=== PATIENT | male | born 1945 | race Caucasian/White ===

== ENCOUNTER 2021-06-26 19:43 | Inpatient (IN) | payer OTHER ==
[~2021-06-26] VITALS: Ht 172.7 cm; Wt 134.3 kg
[2021-06-26 19:50] VITALS: BP 175/89
[2021-06-26 20:26] LABS: INFLUENZA A ANTIGEN Negative (Negative); INFLUENZA B ANTIGEN Negative (Negative)
[2021-06-26 21:15] LABS: ABSOLUTE LYMPHOCYTES 0.9 thou/uL (0.8-5.3); ABSOLUTE MONOCYTES 0.5 thou/uL (0.0-1.2); ABSOLUTE NEUTROPHILS 4.5 thou/uL (1.6-8.1); BASOPHILS 0.1 %; HEMATOCRIT 43.6 % (42.0-52.0); HEMOGLOBIN 14.4 gm/dL (14.0-18.0); MCH 31.4 pg (26.0-34.0); MCHC 33.1 g/dL (28.0-37.0); MCV 94.8 fL (80.0-100.0); MONOCYTES 9.1 %; MPV 8.3 fl. (7.2-11.1); NUCLEATED RBCS 0 /100WBC; PLATELET COUNT* 181 thou/uL (150-400); POLYS 75.8 %; RDW-CV 13.6 % (10.5-14.5)
[2021-06-26 21:23] LABS: CALCIUM 8.8 mg/dL (8.5-10.1); CREATININE 2.4 mg/dL (0.6-1.3)
[2021-06-26 21:33] LABS: ALBUMIN 3.2 g/dL (3.4-5.0); TOTAL BILIRUBIN 0.6 mg/dL (<0.1-1.0); TOTAL PROTEIN 7.6 g/dL (6.4-8.2)
[2021-06-26 23:05] LABS: URINE BILIRUBIN NEGATIVE (Negative); URINE BLOOD NEGATIVE (Negative); URINE CLARITY CLEAR; URINE COLOR YELLOW; URINE GLUCOSE-RANDOM 3+ (Negative); URINE KETONES NEGATIVE (Negative); URINE LEUKOCYTES-REFLEX NEGATIVE (Negative); URINE NITRITE-REFLEX NEGATIVE (Negative); URINE PROTEIN 1+ (Negative); URINE SPECIFIC GRAVITY >= 1.030 (1.005-1.030); URINE UROBILINOGEN 0.2 E.U./dl (0.2-1.0)
[2021-06-27 00:26] LABS: BE -3.8 mmol/L (-2 to +3); PCO2 35.2 mmHg (35.0-45.0); PO2 103.9 mmHg (75.0-100.0); pH 7.384 (7.340-7.450)
[2021-06-27 02:00] VITALS: BP 134/70
[2021-06-27 06:23] VITALS: BP 163/78
[2021-06-27 10:30] VITALS: BP 147/90
--- NOTE | 2021-06-27 11:12 | EKG ---
[place] [address] ELECTROCARDIOGRAM REPORT Name: AKINMASONRUTHIE Jarrett Room: [place] [address] ADM IN [facility]#: [id number] Admission: 06/26/21 Attend Phys: Pedro Jolley Discharge: Date of : 49 Date of Service: 06/26/212034 Report #: [id number] THIS REPORT FOR: //name// [facility] ED Test Date: 2021-06-26 Test Time: 20:35:08 Pat Name: RUTHIE STEVENSON Department: Room: [facility] Gender: M [place] Line Attendant: : 1945 Requested By: Shannon Quintana Order Number: [id number] MD: Yobani Finch Measurements Intervals [place] Rate: 89 P: -1 RI: 185 QRS: 96 QRSD: 126 T: 56 QT: 358 QTc: 436 Interpretive Statements Sinus rhythm Right bundle branch block No previous ECG available for comparison Electronically Signed On 06-27-2021 11:11:43 CURTAIN CUTTER by Yobani Finch [email or web address] <ELECTRONICALLY SIGNED> By: Yobani iFnch MD, FACC 06/27/21 1111 34 34 Yobani Finch MD, FAC /EPI
[2021-06-27 15:30] VITALS: BP 156/90
[2021-06-27 18:15] VITALS: BP 153/99
[2021-06-27 19:26] LABS: ABSOLUTE LYMPHOCYTES 0.7 thou/uL (0.8-5.3); ABSOLUTE MONOCYTES 0.6 thou/uL (0.0-1.2); ABSOLUTE NEUTROPHILS 6.5 thou/uL (1.6-8.1); BASOPHILS 0.1 %; HEMATOCRIT 42.7 % (42.0-52.0); HEMOGLOBIN 14.3 gm/dL (14.0-18.0); LYMPHOCYTES 8.6 %; MCH 31.7 pg (26.0-34.0); MCHC 33.5 g/dL (28.0-37.0); MCV 94.5 fL (80.0-100.0); MONOCYTES 8.3 %; MPV 7.8 fl. (7.2-11.1); NUCLEATED RBCS 0 /100WBC; PLATELET COUNT* 192 thou/uL (150-400); RBC 4.51 mil/uL (4.50-6.00); RDW-CV 13.5 % (10.5-14.5); WBC 7.8 thou/uL (4.0-11.0)
[2021-06-27 19:35] LABS: CREATININE 2.1 mg/dL (0.6-1.3)
[2021-06-27 19:46] LABS: POTASSIUM 5.3 mmol/L (3.5-5.1)
[2021-06-27 22:05] VITALS: BP 164/89
[2021-06-28 00:14] LABS: BE -7.4 mmol/L (-2 to +3); PCO2 29.2 mmHg (35.0-45.0); PO2 93.2 mmHg (75.0-100.0); pH 7.366 (7.340-7.450)
[2021-06-28 02:21] VITALS: BP 165/83
[2021-06-28 06:02] VITALS: BP 144/88
[2021-06-28 11:00] VITALS: BP 164/96
[2021-06-28 15:30] VITALS: BP 136/96
[2021-06-28 17:45] VITALS: BP 172/92
[2021-06-28 20:08] VITALS: BP 136/96
[2021-06-29 00:51] VITALS: BP 186/90
[2021-06-29 04:42] VITALS: BP 167/83
[2021-06-29 05:08] LABS: HEMATOCRIT 45.2 % (42.0-52.0); HEMOGLOBIN 14.9 gm/dL (14.0-18.0); MCHC 32.9 g/dL (28.0-37.0); MPV 7.8 fl. (7.2-11.1); RBC 4.81 mil/uL (4.50-6.00); RDW-CV 13.6 % (10.5-14.5); WBC 12.7 thou/uL (4.0-11.0)
[2021-06-29 05:43] LABS: CALCIUM 9.6 mg/dL (8.5-10.1); POTASSIUM 5.2 mmol/L (3.5-5.1)
[2021-06-29 08:25] VITALS: BP 146/92
[2021-06-29 11:18] LABS: PCO2 36.9 mmHg (35.0-45.0); PO2 60.1 mmHg (75.0-100.0); pH 7.332 (7.340-7.450)
[2021-06-29 12:48] VITALS: BP 175/98
[2021-06-29 16:54] VITALS: BP 154/103
[2021-06-29 20:00] VITALS: BP 154/93
--- NOTE | 2021-06-29 23:29 | NUR ---
BIPAP ORDERED FOR PT. PT IS TOO CONFUSED TO WEAR AT THIS TIME. WILL CONT TO MONITOR AND EVALUATE MENTATION.
[2021-06-30] VITALS (11 sets, daily range): BP systolic 106–163; BP diastolic 60–88
--- NOTE | 2021-06-30 04:36 | NUR ---
PT DID NOT TOLERATE BIPAP. RN PLACED BACK ON 15LPM NC.
[2021-06-30 04:46] LABS: HEMATOCRIT 42.5 % (42.0-52.0); HEMOGLOBIN 14.3 gm/dL (14.0-18.0); MCH 31.1 pg (26.0-34.0); MCHC 33.6 g/dL (28.0-37.0); MCV 92.7 fL (80.0-100.0); MPV 7.8 fl. (7.2-11.1); PLATELET COUNT* 289 thou/uL (150-400); RBC 4.58 mil/uL (4.50-6.00); WBC 13.4 thou/uL (4.0-11.0)
[2021-06-30 05:11] LABS: ALBUMIN 3.2 g/dL (3.4-5.0); CALCIUM 9.2 mg/dL (8.5-10.1); MAGNESIUM 2.5 mg/dL (1.8-2.4); POTASSIUM 5.1 mmol/L (3.5-5.1); TOTAL BILIRUBIN 0.6 mg/dL (<0.1-1.0); TOTAL PROTEIN 6.6 g/dL (6.4-8.2)
--- NOTE | 2021-06-30 05:25 | NUR ---
PT CAN BE COMBATIVE AT TIMES, IMPULSIVE AND VERY CONFUSED. GOAL THIS SHIFT WAS TO KEEP OXYGEN ON. HE REMOVED IV, SODIUM BICARBONATE COULD NOT RUN HE WOULD REMOVE THE LINE WHEN ATTEMPTING TO RUN IT. I HAD TO KEEP IT OFF TO KEEP HIM CALM/I THINK IT WAS BURNING HIM. HE WAS UP A FEW TIMES FOUND NAKED WITH HIS OXYGEN REMOVED. I GAVE ATIVAN TWO TIMES AND KEPT HIM IN HIS RECLINER WITH FEET UP TO DISCOURAGE AMBULATION. HE IS ALERT TO SELF AND FALL PRECAUTIONS ARE IN PLACE.
[2021-06-30 06:01] LABS: ANTI-Xa-UNFRACTIONATED HEP 7.335; BE -5.9 mmol/L (-2 to +3); PCO2 36.6 mmHg (35.0-45.0); PO2 85.9 mmHg (75.0-100.0); pH 7.336 (7.340-7.450)
[2021-06-30] MEDS ORDERED: FOLIC ACID1 MG (10:24)
[2021-06-30] MEDS ORDERED: FUROSEMIDE 20 M20 MG (10:25)
[2021-06-30] MEDS ORDERED: TAMSULOSIN HCL0.4 MG (10:26)
[2021-06-30] MEDS ORDERED: GLIPIZIDE ER10 MG PO (10:27)
[2021-06-30] MEDS ORDERED: ACTOS 30 MG TAB30 MG PO (10:29)
[2021-06-30] MEDS ORDERED: LIPITOR40 MG PO (10:29)
[2021-06-30] MEDS ORDERED: METOPROLOL SUCC50 MG PO (10:31)
--- NOTE | 2021-06-30 11:24 | NUR ---
Nutrition: Pt admitted with COVID. Assessed for high BMI. Pt is confused, found walking around with O2 removed, per nsg notes. Wt: 280#. OBE, ARF, PNA. CHO control diet ordered. Meds: B1, D3, albuterol, metoprolol, insulin. Labs: BUN 53, cr 2, BG 200s, albumin 3.2. Encourage good meal intake, tight BG control with insulin. Not appropriate for nutrition educ at this time. Consider mild risk.
[2021-06-30 13:14] LABS: PLATELET ESTIMATE ADEQUATE
[2021-06-30 13:58] LABS: ABSOLUTE LYMPHOCYTES 0.3 thou/uL (0.8-5.3); ABSOLUTE MONOCYTES 0.1 thou/uL (0.0-1.2)
--- NOTE | 2021-06-30 14:41 | NUR ---
CM ASSESSMENT ASSESSMENT COMPLETED WITH PT'S (ALDAIR STEVENSON - [phone]). PT RESIDES WITH AND DAUGHTER IN SINGLE STORY HOME. PT HAS NO HX WITH DME AND IS INDEPENDENT WITH ADLS. PT HAS NO SKILLED, REHAB, OR SERVICE HX. CM TO FOLLOW FOR DC NEEDS.
[2021-07-01] VITALS: BP 165/81
[2021-07-01 01:03] VITALS: BP 187/89
[2021-07-01 02:01] VITALS: BP 164/73
[2021-07-01 05:29] LABS: ABSOLUTE LYMPHOCYTES 0.6 thou/uL (0.8-5.3); ABSOLUTE MONOCYTES 0.8 thou/uL (0.0-1.2); ABSOLUTE NEUTROPHILS 10.5 thou/uL (1.6-8.1); BASOPHILS 0.1 %; HEMOGLOBIN 14.4 gm/dL (14.0-18.0); LYMPHOCYTES 4.8 %; MCH 30.9 pg (26.0-34.0); MCHC 33.4 g/dL (28.0-37.0); MCV 92.5 fL (80.0-100.0); MONOCYTES 6.6 %; NUCLEATED RBCS 0 /100WBC; PLATELET COUNT* 279 thou/uL (150-400); POLYS 88.5 %; RBC 4.65 mil/uL (4.50-6.00); RDW-CV 13.5 % (10.5-14.5); WBC 11.9 thou/uL (4.0-11.0)
[2021-07-01 06:22] LABS: CALCIUM 9.3 mg/dL (8.5-10.1); CREATININE 1.8 mg/dL (0.6-1.3); MAGNESIUM 2.7 mg/dL (1.8-2.4); POTASSIUM 5.2 mmol/L (3.5-5.1); TOTAL BILIRUBIN 0.6 mg/dL (<0.1-1.0); TOTAL PROTEIN 6.4 g/dL (6.4-8.2)
--- NOTE | 2021-07-01 07:19 | NUR ---
PT ADMITTED TO ICU R/T "NEED FOR PRECEDEX GTT." PT STARTED ON PRECEDEX GTT AND REMAINED ON GTT UNTIL APPROX. 0200 R/T BRADYCARDIA. RN SPOKE WITH MD KWAN REGARDING PO MEDS. ORDERED TO "HOLD ALL PO MEDS AT THIS TIME UNTIL HE COMES IN TO EVALUATE THE PATIENT IN THE MORNING." PT IS IMPULSIVE AND PULLS OFF BIPAP MASK WHEN AWAKE. PT INFILTRATED RFA PERIPHERAL IV. IV REMOVED. NO ACUTE CHANGES THIS SHIFT. WILL CONT. TO MONITOR.
[2021-07-01 08:19] LABS: PCO2 40.6 mmHg (35.0-45.0); pH 7.413 (7.340-7.450)
[2021-07-01 08:20] LABS: BE 0.7 mmol/L (-2 to +3); PO2 63.4 mmHg (75.0-100.0)
--- NOTE | 2021-07-01 13:33 | 2DMMODE ---
[place] [address] 2 D/M-MODE ECHOCARDIOGRAM Name: RUTHIE STEVENSON Room: [address] IN [facility]#: [id number] Admission: 06/26/21 Attend Phys: Pedro Jolley Discharge: Date of : 49 Date of Service: 07/01/21 1333 Report #: [id number] THIS REPORT FOR: cc: Faye Fountain MD, Katrina MD Liston, Michael J. MD [facility] ~ APPROVED REPORT Study performed: 07/01/2021 10:15:55 EXAM: Comprehensive 2D, Doppler, and color-flow Echocardiogram Patient Location: In-Patient Room #: 001 Status: routine BSA: 2.36 HR: 70 bpm BP: 136/57 mmHg Rhythm: NSR Other Information Study Quality: Good Indications Dyspnea 2D Dimensions IVSd: 10.29 (7-11mm) LVOT Diam: 20.88 (18-24mm) LVDd: 36.52 mm PWd: 10.38 (7-11mm) Ascending Ao: 30.37 (22-36mm) LVDs: 18.99 (25-40mm) Aortic Root: 33.97 mm Aortic Valve AoV Peak Santiago.: 1.60 m/s AO Peak Gr.: 10.25 mmHg LVOT Max P.69 mmHg AO Mean Gr.: 4.79 mmHg LVOT Mean P.66 mmHg LVOT Max V: 1.29 m/s AO V2 VTI: 30.87 cm LVOT Mean V: 0.73 m/s JAZMINE (VTI): 3.21 cm2 LVOT V1 VTI: 28.95 cm Mitral Valve E/A Ratio: 1.05 MV Decel. Time: 211.34 ms MV E Max Santiago.: 0.71 m/[place] [address] 2 D/M-MODE ECHOCARDIOGRAM Name: RUTHIE STEVENSON Jarrett Room: [address] IN [facility]#: [id number] Admission: 06/26/21 Attend Phys: Pedro Jolley Discharge: Date of : 49 Date of Service: 07/01/21 1333 Report #: [id number] MV PHT: 61.29 ms MVA (PHT): 3.59 cm2 Pulmonary Valve PV Peak Santiago.: 1.16 m/s PV Peak Gr.: 5.39 mmHg Tricuspid Valve RAP Estimate: 5.00 mmHg TR Peak Gr.: 33.85 mmHg RVSP: 38.00 mmHg PA Pressure: 38.00 mmHg Left Ventricle The left ventricle is normal size. There is normal LV segmental wall motion. There is normal left ventricular wall thickness. Left ventricular systolic function is normal. LVEF is >70%. Right Ventricle The right ventricle is normal size. The right ventricular systolic function is normal. Atria The left atrium size is normal. The right atrium size is normal. Aortic Valve The aortic valve is normal in structure. No aortic regurgitation is present. There is no aortic valvular stenosis. Mitral Valve The mitral valve is normal in structure. There is no mitral valve regurgitation noted. No evidence of mitral valve stenosis. Tricuspid Valve The tricuspid valve is normal in structure. Mild tricuspid regurgitation. Mild pulmonary hypertension. The RVSP is 40-45 mmHg. Pulmonic Valve The pulmonary valve is normal in structure. There is no pulmonic valvular regurgitation. Great Vessels The aortic root is normal in size. IVC is normal in size and collapses >50% with inspiration[place] [address] 2 D/M-MODE ECHOCARDIOGRAM Name: RUTHIE STEVENSON Jarrett Room: [address]#: [id number] Admission: 06/26/21 Attend Phys: Pedro Jolley Discharge: Date of : 49 Date of Service: 07/01/21 1333 Report #: [id number] There is no pericardial effusion. <Conclusion> The left ventricle is normal size. There is normal left ventricular wall thickness. Left ventricular systolic function is normal. LVEF is >70%. There is normal LV segmental wall motion. Mild tricuspid regurgitation. Mild pulmonary hypertension. The RVSP is 40-45 mmHg. IVC is normal in size and collapses >50% with inspiration. <ELECTRONICALLY SIGNED> By: Rufino Brush MD, FACC 07/01/21 133 32 32 Rufino Brush MD, FACC /INF
--- NOTE | 2021-07-01 15:46 | NUR ---
Pt has now transferred to the ICU due to increased oxygen needs. He is currently on Bipap & we are hoping to avoid intubation. Pt lives with his and daughter. was recently hospitalized for Covid as well. CM to continue to follow for discharge needs.
[2021-07-01 21:00] VITALS: BP 175/86
[2021-07-01 23:01] VITALS: BP 204/95
[2021-07-02] VITALS (32 sets, daily range): BP systolic 130–217; BP diastolic 59–105
[2021-07-02 08:54] LABS: BE 2.3 mmol/L (-2 to +3); PCO2 37.1 mmHg (35.0-45.0); pH 7.462 (7.340-7.450)
[2021-07-02 09:07] LABS: HEMATOCRIT 45.9 % (42.0-52.0); HEMOGLOBIN 15.2 gm/dL (14.0-18.0); MCHC 33.2 g/dL (28.0-37.0); MCV 93.5 fL (80.0-100.0); MPV 7.8 fl. (7.2-11.1); RBC 4.91 mil/uL (4.50-6.00); RDW-CV 13.5 % (10.5-14.5); WBC 12.7 thou/uL (4.0-11.0)
[2021-07-02 09:27] LABS: ALBUMIN 2.7 g/dL (3.4-5.0); CALCIUM 9.1 mg/dL (8.5-10.1); CREATININE 1.8 mg/dL (0.6-1.3); MAGNESIUM 2.4 mg/dL (1.8-2.4); POTASSIUM 3.4 mmol/L (3.5-5.1); TOTAL BILIRUBIN 0.9 mg/dL (<0.1-1.0); TOTAL PROTEIN 6.6 g/dL (6.4-8.2)
[2021-07-02 11:39] LABS: BE 0.5 mmol/L (-2 to +3); PCO2 44.2 mmHg (35.0-45.0); PO2 77.7 mmHg (75.0-100.0); pH 7.386 (7.340-7.450)
--- NOTE | 2021-07-02 13:30 | CON ---
[facility] [address] [place] [address] CONSULTATION Name: RUTHIE STEVENSON Room: [address] IN .R.#: [id number] Admission: 06/26/21 Attend Phys: Alysia Osorio Discharge: Date of : 49 Report #: [id number] THIS REPORT FOR: cc: Faye Fountain MD, Katrina MD Pervez, Adeel MD ~ DATE OF CONSULTATION: 06/30/2021 CONSULT REQUESTED BY: Dr. Gonzalez. INDICATION FOR CONSULTATION: Acute hypoxemic respiratory failure secondary to COVID-19. HISTORY OF PRESENT ILLNESS: This 75-year-old gentleman has a previous history of smoking. I do not see a diagnosis of COPD on his records, though he does have a history of diabetes and hypertension. I do not have his baseline creatinine available. Currently, the patient is in acute renal failure. He also is hypoxemic. He is requiring a nonrebreather mask in addition to 15 liters via a high-flow green nasal cannula to maintain O2 saturation in the low 90s. He has been confused and agitated and therefore has been requiring sedation including Ativan. The patient recently received Ativan before I saw him and at that time he was agitated, but drowsy at the same time and unable to respond to verbal commands. The patient could not provide a review of systems either. PAST MEDICAL HISTORY: Hypertension, diabetes, hyperlipidemia. SOCIAL HISTORY: He has a history of smoking, unable to quantify at this time. No known history of heavy alcohol use or illegal drug use. VACCINATION STATUS: He is unvaccinated for COVID-19. CURRENT MEDICATIONS: List in [employer] reviewed. HOME MEDICATIONS: List in [employer] reviewed. ALLERGIES: CODEINE. FAMILY HISTORY: Hypertension. PHYSICAL EXAMINATION: GENERAL: He is markedly drowsy, but is also restless at the same time, is unable to respond to verbal commands. VITAL SIGNS: With a nonrebreather mask in place in addition to 15 liters of green high flow, his O2 saturation is 94%, [place] [address] CONSULTATION Name: RUTHIE STEVENSON Room: [address]#: [id number] Admission: 06/26/21 Attend Phys: Alysia Osorio Discharge: Date of : 49 Report #: [id number] between 18-25. Heart rate is 70. He is afebrile with a temperature of 36.1, blood pressure 134/82. HEENT: Head is normocephalic and atraumatic. NECK: Does not show raised JVP, asymmetry, mass or lymph nodes. CHEST: Symmetrical expansion on inspection and palpation. On auscultation, breath sounds are bilaterally equal. I do not hear any added sounds. HEART: Regular. There is no murmur. ABDOMEN: Soft and nontender. EXTREMITIES: Lower extremities, 1+ edema. No calf tenderness. SKIN: Dry and intact. NEUROLOGIC: Moves all extremities bilaterally equally and spontaneously with no focal deficit identified. LABORATORY DATA: The patient's chest x-rays as well as lab work is in [facility] and this is reviewed. Arterial blood gases also in [facility] reviewed. ASSESSMENT/PLAN: 1. Acute hypoxemic respiratory failure secondary to COVID-19. The patient at this time is confused. He is unable to fully cooperate with care; therefore, I would favor trying to avoid giving him benzodiazepines. If he has pain, then we will give him narcotics, but we will try to avoid use of narcotics for agitation. I recommend that we go ahead and transfer him to the ICU and use Precedex for sedation if he is okay to use antipsychotics as well. Continue to monitor oxygen. He may benefit from BiPAP; however, it appears unlikely that he will be able to cooperate at this time. 2. COVID-19. He is on dexamethasone. I increased dose to 10 mg b.i.d. He is on remdesivir. We will also continue, but despite renal failure, benefit appears to outweigh risks. Pharmacy tells me that there is only 1 dose of Actemra available in the hospital. Therefore, I decided not to administer Actemra at this time, but this will be a consideration should he decline. The patient would benefit from Actemra now; however, it is in short supply. There is mild elevation in LFTs. We will watch LFTs closely while he is on remdesivir. 3. Pulmonary infiltrates. Continue doxycycline. Add cefepime to cover for secondary bacterial infections. 4. Acute renal failure. I do not have his baseline creatinine available, therefore presuming this is acute renal failure. He is on a bicarbonate drip. He is receiving the 2nd bag. We will continue with this bag and then we will discontinue and then reassess his fluid and acid base status tomorrow. I ordered an ABG for 8:00 a.m. tomorrow. It is possible he is more hypernatremic tomorrow and if so, may need D5W. If so, then he will also need more insulin. Check a renal ultrasound, he may benefit from placing a Ayala catheter; however, I do not want to worsen his agitation and therefore, I held off for now. I ordered 1 dose of Lasix as well in order to avoid development of worsening fluid [facility] [address] [place] [address] CONSULTATION Name: RUTHIE STEVENSON Room: [address] IN .R.#: [id number] Admission: 06/26/21 Attend Phys: Alysia Osorio Discharge: Date of : 49 Report #: [id number] overload. 5. Edema of lower extremities, also check venous Dopplers and a 2D echo. 6. Deep venous thrombosis prophylaxis. He is on Eliquis. If unable to take orally, then we will give him Lovenox. 7. History of smoking. He is on DuoNeb, also on dexamethasone as above. 8. History of hypertension. 9. History of diabetes. 10. Gastrointestinal prophylaxis, Pepcid. 11. Clostridium difficile prophylaxis. If he is able to, then we will give him Lactinex. The patient is critically ill at this time. Total time spent providing critical care to this patient today exceeds 45 minutes. I discussed with Dr. Gonzalez. <ELECTRONICALLY SIGNED> By: Eduardo Gaffney MD 07/02/21 1330 1359 1923Aderrick Gaffney MD /nt
--- NOTE | 2021-07-02 15:03 | NUR ---
Pt remains in the ICU - but went into respiratory distress today and has now been placed on a vent (Fi02 - 100%). CM to continue to follow for discharge needs.
--- NOTE | 2021-07-02 18:41 | NUR ---
INTUBATION/ END OF SHIFT: UPON INTRODUCTION TO THE PT HE WAS FOUND TO BE SLIGHTLY AGITATED, PULLING AT RODRIGUES AND TRYING TO REMOVE BIPAP. OXYGEN SATURATION WOULD NOT MAINTAIN ABOVE 85% WITH BIPAP AT 100%. RT NOTIFIED WELL DR SUMMERS AND DR ALONZO. PT INTUBATED, SEDATED AND RESTRAINED WITH ASSISTANCE OF ER PHYSICIAN AT 0915. DR SUMMERS PLACED LEFT WRIST ARTERIAL LINE AT 1000, PT OXYGEN, HR AND BP STABILIZED. INFORMATION GIVEN TO FLOW MANAGER NURSE.
--- NOTE | 2021-07-02 19:02 | NUR ---
page was sent to provider electronic development technician at 07/01 to report elevated bp on you call md. message recived at [phone] with no orders followed up
[2021-07-03] VITALS (15 sets, daily range): BP systolic 99–178; BP diastolic 53–78
[2021-07-03 05:03] LABS: ABSOLUTE LYMPHOCYTES 0.3 thou/uL (0.8-5.3); ABSOLUTE MONOCYTES 0.7 thou/uL (0.0-1.2); ABSOLUTE NEUTROPHILS 14.4 thou/uL (1.6-8.1); BASOPHILS 0.3 %; HEMATOCRIT 42.7 % (42.0-52.0); HEMOGLOBIN 14.3 gm/dL (14.0-18.0); LYMPHOCYTES 2.1 %; MCH 31.2 pg (26.0-34.0); MCHC 33.6 g/dL (28.0-37.0); MCV 92.8 fL (80.0-100.0); MONOCYTES 4.6 %; MPV 7.9 fl. (7.2-11.1); NUCLEATED RBCS 0 /100WBC; PLATELET COUNT* 274 thou/uL (150-400); RDW-CV 13.8 % (10.5-14.5); WBC 15.5 thou/uL (4.0-11.0)
[2021-07-03 05:16] LABS: ALBUMIN 2.4 g/dL (3.4-5.0); CALCIUM 8.9 mg/dL (8.5-10.1); CREATININE 1.9 mg/dL (0.6-1.3); MAGNESIUM 2.5 mg/dL (1.8-2.4); POTASSIUM 3.9 mmol/L (3.5-5.1); TOTAL BILIRUBIN 0.5 mg/dL (<0.1-1.0); TOTAL PROTEIN 5.9 g/dL (6.4-8.2)
[2021-07-03 05:25] LABS: PHOSPHORUS* 3.4 mg/dL (2.5-4.9)
[2021-07-03 08:02] LABS: PCO2 49.4 mmHg (35.0-45.0); PO2 69.7 mmHg (75.0-100.0); pH 7.303 (7.340-7.450)
[2021-07-03 18:17] LABS: BE -6.4 mmol/L (-2 to +3); PO2 83.2 mmHg (75.0-100.0)
[2021-07-03 18:29] LABS: PCO2 54.3 mmHg (35.0-45.0); pH 7.222 (7.340-7.450)
[2021-07-04] VITALS (22 sets, daily range): BP systolic 141–177; BP diastolic 46–72
[2021-07-04 05:22] LABS: ABSOLUTE LYMPHOCYTES 0.4 thou/uL (0.8-5.3); ABSOLUTE MONOCYTES 0.7 thou/uL (0.0-1.2); ABSOLUTE NEUTROPHILS 16.9 thou/uL (1.6-8.1); BASOPHILS 0.2 %; HEMATOCRIT 41.5 % (42.0-52.0); HEMOGLOBIN 13.7 gm/dL (14.0-18.0); MCH 30.8 pg (26.0-34.0); MCHC 33.1 g/dL (28.0-37.0); MCV 93.2 fL (80.0-100.0); MONOCYTES 4.1 %; MPV 8.2 fl. (7.2-11.1); NUCLEATED RBCS 0 /100WBC; PLATELET COUNT* 258 thou/uL (150-400); POLYS 93.7 %; RBC 4.45 mil/uL (4.50-6.00)
[2021-07-04 05:58] LABS: APTT 26.4 Seconds (25.0-31.3); INR 1.2; PROTIME 11.9 Seconds (9.20-11.50)
[2021-07-04 06:18] LABS: ALBUMIN 2.2 g/dL (3.4-5.0); CALCIUM 8.6 mg/dL (8.5-10.1); MAGNESIUM 2.6 mg/dL (1.8-2.4); POTASSIUM 3.9 mmol/L (3.5-5.1); TOTAL BILIRUBIN 0.5 mg/dL (<0.1-1.0); TOTAL PROTEIN 5.5 g/dL (6.4-8.2)
[2021-07-04 07:17] LABS: PHOSPHORUS* 4.2 mg/dL (2.5-4.9)
[2021-07-04 07:57] LABS: PCO2 47.6 mmHg (35.0-45.0); PO2 103.9 mmHg (75.0-100.0); pH 7.327 (7.340-7.450)
--- NOTE | 2021-07-04 11:36 | NUR ---
ICU Rounds: Pt continues to be ventilated on Fi02 - 80% and sedated. Pt is currently receiving antibiotics and steroids. Neurology is recommending a non contrast CT when medically stable. Pt lives with his (who was recently hospitalized with Covid) and daughter. Anticipate pt will need SNF vs home with family/HH. CM to continue to follow for discharge planning.
[2021-07-04 19:17] LABS: CALCIUM 8.6 mg/dL (8.5-10.1); MAGNESIUM 2.5 mg/dL (1.8-2.4)
[2021-07-05] VITALS (38 sets, daily range): BP systolic 147–203; BP diastolic 58–76
[2021-07-05 06:07] LABS: ABSOLUTE LYMPHOCYTES 0.5 thou/uL (0.8-5.3); ABSOLUTE MONOCYTES 0.7 thou/uL (0.0-1.2); ABSOLUTE NEUTROPHILS 14.6 thou/uL (1.6-8.1); BASOPHILS 0.1 %; HEMATOCRIT 38.9 % (42.0-52.0); LYMPHOCYTES 3.1 %; MCH 31.3 pg (26.0-34.0); MCHC 33.3 g/dL (28.0-37.0); MCV 93.9 fL (80.0-100.0); MONOCYTES 4.4 %; MPV 8.3 fl. (7.2-11.1); NUCLEATED RBCS 0 /100WBC; PLATELET COUNT* 237 thou/uL (150-400); POLYS 92.4 %; RBC 4.15 mil/uL (4.50-6.00); RDW-CV 13.7 % (10.5-14.5); WBC 15.8 thou/uL (4.0-11.0)
[2021-07-05 06:20] LABS: CALCIUM 8.9 mg/dL (8.5-10.1); PHOSPHORUS* 3.1 mg/dL (2.5-4.9); POTASSIUM 3.9 mmol/L (3.5-5.1)
[2021-07-05 06:21] LABS: ALBUMIN 2.9 g/dL (3.4-5.0); CALCIUM 8.7 mg/dL (8.5-10.1); CREATININE 2.9 mg/dL (0.6-1.3); MAGNESIUM 2.5 mg/dL (1.8-2.4); TOTAL BILIRUBIN 0.6 mg/dL (<0.1-1.0); TOTAL PROTEIN 5.4 g/dL (6.4-8.2)
[2021-07-05 09:46] LABS: BE -2.8 mmol/L (-2 to +3); PCO2 39.8 mmHg (35.0-45.0); PO2 104.7 mmHg (75.0-100.0); pH 7.366 (7.340-7.450)
--- NOTE | 2021-07-05 12:03 | CON ---
[facility] [address] [place] [address] CONSULTATION Name: RUTHIE STEVENSON Room: [address] IN M.R.#: [id number] Admission: 06/26/21 Attend Phys: Alysia Osorio Discharge: Date of : 49 Report #: [id number] THIS REPORT FOR: cc: Faye Fountain MD, Katrina MD Khosla, Parveen K. MD ~ DATE OF CONSULTATION: 07/02/2021 HISTORY OF PRESENT ILLNESS: This is a 75-year-old male patient, who was evaluated by me for encephalopathy. This patient when I saw was completely sedated. So, the history is from the nurses as well as from the records and I will try to talk to the hospitalist tomorrow. This patient is COVID positive. He was admitted with weakness and shortness of breath. According to the record, his weakness progressively became worse. He had some body aches and throbbing. His was also COVID positive. The records indicate that he has not been vaccinated. Nurses tell me when he was agitated, he just wanted to go home. REVIEW OF SYSTEMS: Indicates positive for diabetes, high cholesterol, hypertension. Multiple consultants are involved in this patient's care and those notes were reviewed. He has hypoxic failure, morbid obesity. He is being followed by multiple consultants including pulmonary. He is also having problem with other organs in the body because his GFR is low. A 14-point review of system was attempted and this is all I can get. PAST MEDICAL HISTORY: Unavailable from the patient as he is completely sedated. FAMILY AND SOCIAL HISTORY: Also unremarkable except that his was also COVID positive. PHYSICAL EXAMINATION: His examination was impossible. He had no response because he was completely sedated. No meningeal sign. I could not look at the fundus. VITAL SIGNS: Blood pressure is 130/60, respirations 11, pulse is 64. LABORATORY DATA: Labs indicate a white count of 12.7 and GFR of only 37. IMAGING STUDIES: He did not have any imaging studies of the brain. ASSESSMENT AND PLAN: This patient most likely has encephalopathy. I will talk to hospitalist to see if it is possible to take him down for CT scan to make sure there is no other etiology, that will be done tomorrow; and I think the main management is going to be the systemic management on this patient, but if we can get a CT scan, that will exclude at [place] [address] CONSULTATION Name: RUTHIE STEVENSON Room: [address]#: [id number] Admission: 06/26/21 Attend Phys: Alysia Osorio Discharge: Date of : 49 Report #: [id number] Thank you very much for this referral. <ELECTRONICALLY SIGNED> By: Dhiraj Lees MD 07/05/21 1203 2000 [id number] Lees MD /toby
--- NOTE | 2021-07-05 21:35 | NUR ---
I ASSUMED CARE OF THE PATIENT AT 0700. HE IS SEDATED AND INTUBATED. BED IS IN THE LOW LOCKED POSITION AND CALL LIGHT IS IN REACH. PATIENT NEEDS ARE MET DURING HOURLY ROUNDING. PAIN IS NOT APPARENT. FLUIDS WERE INCREASED BY NEPHRO AT 0740 IN AN EFFORT TO INCREASE OUTPUT. TUBE FEEDS HAVE BEEN HELD D/T POSSIBLE PANCREATITIS. 35ML OUTPUT AFTER 12 HOURS, SO I BLADDER SCANNED TO FIND 385ML. A NEW RODRIGUES WAS PLACED AND 1000ML OF OUTPUT WAS CHARTED IMMEDIATELY. A LARGE CLOT WAS IN THE INITIAL FLASH. DAUGHTER WAS UPDATED ON PATIENT'S CONDITION. NO TITRATIONS OF SEDATION MEDS TODAY. PATIENT WAS PRONED UNTIL AFTERNOON WHEN ENOUGH HELP WAS ABLE TO SUPINE THE PATIENT. PRN BP MEDS WERE GIVEN LATE IN THE SHIFT FOR ELEVATED BP. REPORT GIVEN TO RASHAAD.
[2021-07-06] VITALS (27 sets, daily range): BP systolic 155–192; BP diastolic 58–68
[2021-07-06 04:31] LABS: HEMATOCRIT 40.1 % (42.0-52.0); HEMOGLOBIN 13.1 gm/dL (14.0-18.0); MCH 30.5 pg (26.0-34.0); MCHC 32.6 g/dL (28.0-37.0); MCV 93.8 fL (80.0-100.0); MPV 8.7 fl. (7.2-11.1); NUCLEATED RBCS 0 /100WBC; PLATELET COUNT* 228 thou/uL (150-400); RBC 4.28 mil/uL (4.50-6.00); RDW-CV 13.8 % (10.5-14.5)
[2021-07-06 04:55] LABS: CALCIUM 8.6 mg/dL (8.5-10.1); CREATININE 2.8 mg/dL (0.6-1.3); MAGNESIUM 2.5 mg/dL (1.8-2.4); PHOSPHORUS* 4.6 mg/dL (2.5-4.9); POTASSIUM 4.2 mmol/L (3.5-5.1)
[2021-07-06 06:07] LABS: ABSOLUTE LYMPHOCYTES 0.5 thou/uL (0.8-5.3); ABSOLUTE MONOCYTES 0.7 thou/uL (0.0-1.2); ABSOLUTE NEUTROPHILS 16.7 thou/uL (1.6-8.1)
[2021-07-06 06:08] LABS: PLATELET ESTIMATE ADEQUATE; TOXIC GRANULATION 2+
[2021-07-06 10:12] LABS: PCO2 39.7 mmHg (35.0-45.0); pH 7.331 (7.340-7.450)
--- NOTE | 2021-07-06 19:22 | NUR ---
REPORT RECIEVED AND CARE ASSUMMED. PT WAS PRINED AT THAT TIME, IN NO ACUTE DISTRESS. ETT INTACT AT 24 AT LIP AND CONNECTED TO VENTILATOR WITH FOLLOWING SETTINGS FIO2 60%, AC 22, TV 550, P12. OGT INTACT AT 60CM. RODRIGUES ITNACTA ND PATENT DRAINING YELLOW URINE TO BEDSIDE BAG. TUBE FEEDIGN RESTARTED ORDERED AT 20CC/HR VIA PUMP. PT UNPRONED AND TOLERATED WELL. NO ACUTE CHANGES DURING SHIFT. MONITORS INTACT
[2021-07-07] VITALS (39 sets, daily range): BP systolic 145–172; BP diastolic 59–75
[2021-07-07 05:05] LABS: ABSOLUTE LYMPHOCYTES 0.3 thou/uL (0.8-5.3); ABSOLUTE NEUTROPHILS 19.7 thou/uL (1.6-8.1); BASOPHILS 0.1 %; HEMATOCRIT 41.6 % (42.0-52.0); HEMOGLOBIN 13.7 gm/dL (14.0-18.0); LYMPHOCYTES 1.5 %; MCH 30.7 pg (26.0-34.0); MCHC 32.9 g/dL (28.0-37.0); MCV 93.2 fL (80.0-100.0); MONOCYTES 4.6 %; MPV 8.8 fl. (7.2-11.1); NUCLEATED RBCS 0 /100WBC; PLATELET COUNT* 215 thou/uL (150-400); POLYS 93.8 %; RBC 4.47 mil/uL (4.50-6.00); RDW-CV 13.9 % (10.5-14.5)
[2021-07-07 05:06] LABS: BE -8.6 mmol/L (-2 to +3); PCO2 VENOUS 34.8 mmHg (41.0-51.0); PO2 VENOUS 141.6 mmHg (35.0-45.0)
[2021-07-07 05:40] LABS: APTT 25.9 Seconds (25.0-31.3); INR 1.2; PROTIME 11.8 Seconds (9.20-11.50)
[2021-07-07 05:44] LABS: PHOSPHORUS* 4.7 mg/dL (2.5-4.9)
[2021-07-07 06:18] LABS: ALBUMIN 2.8 g/dL (3.4-5.0); CALCIUM 8.5 mg/dL (8.5-10.1); MAGNESIUM 2.6 mg/dL (1.8-2.4); POTASSIUM 4.6 mmol/L (3.5-5.1); TOTAL BILIRUBIN 0.6 mg/dL (<0.1-1.0); TOTAL PROTEIN 5.3 g/dL (6.4-8.2)
--- NOTE | 2021-07-07 06:30 | NUR ---
PT SEDATED AND ON VENTILATOR. SEE INTERVENTIONS FOR DOCUMENTATION. TOLERATING TUBE FEEDING, ADVANCED TO GOAL STRENGTH OF 45 CC/HR, ONLY 15 CC RESIDULE. BLANE LOWER LEGS WITH 2+ EDEMA. GAS USAGE METER CLERK SHOWING SR WITH 1ST AVB.
[2021-07-07 09:42] LABS: BE -7.9 mmol/L (-2 to +3); PO2 74.2 mmHg (75.0-100.0); pH 7.329 (7.340-7.450)
[2021-07-07 13:38] LABS: BE -8.6 mmol/L (-2 to +3); PCO2 34.5 mmHg (35.0-45.0); PO2 72.2 mmHg (75.0-100.0); pH 7.304 (7.340-7.450)
--- NOTE | 2021-07-07 15:43 | NUR ---
ICU Rounds: Pt continues to be on a vent and sedated and had increased oxygen needs with going from 50% to 90% Fio2 with Peep of 10. ID consulted today for antibiotics. Pt was intubed on 07/02/21. Pt lives with his and daughter. No advanced directive found at this time. Continue to follow for discharge planning.
--- NOTE | 2021-07-07 22:21 | NUR ---
I ASSUMED CARE OF THE PATIENT AT 0700. HE IS SEDATED AND INTUBATED IN SOFT RESTRAINTS. BED IS IN THE LOW LOCKED POSITION. ISOLATION IS MAINTAINED. UPDATE GIVEN TO /DAUGHTER LATE IN THE SHIFT. HE IS PRONED AT 1650. BLOOD GLUCOSE IS MONITORED. HE WENT TO CT FOR A VQ TEST. TUBE FEEDING IS AT GOAL OF 45/ML/HR WITH VERY MINIMAL RESIDUALS, LESS THAN 15. VENT SETTINGS ARE TOLERATED AND SEDATION IS ADEQUATE. SOFT RESTRAINTS ARE IN PLACE AND MONIORED. HE IS REPOSITIONED DURING THE SHIFT. REPORT GIVEN TO TATIANA/JOVANNY.
[2021-07-08] VITALS (23 sets, daily range): BP systolic 145–176; BP diastolic 51–69
[2021-07-08 04:11] LABS: ABSOLUTE BASOPHILS 0.1 thou/uL (0.0-0.2); ABSOLUTE LYMPHOCYTES 0.4 thou/uL (0.8-5.3); ABSOLUTE MONOCYTES 1.1 thou/uL (0.0-1.2); ABSOLUTE NEUTROPHILS 21.3 thou/uL (1.6-8.1); BASOPHILS 0.3 %; HEMATOCRIT 42.4 % (42.0-52.0); HEMOGLOBIN 13.7 gm/dL (14.0-18.0); LYMPHOCYTES 1.6 %; MCH 30.5 pg (26.0-34.0); MCHC 32.2 g/dL (28.0-37.0); MCV 94.7 fL (80.0-100.0); MONOCYTES 4.8 %; NUCLEATED RBCS 0 /100WBC; PLATELET COUNT* 196 thou/uL (150-400); POLYS 93.3 %; RBC 4.47 mil/uL (4.50-6.00); RDW-CV 13.7 % (10.5-14.5); WBC 22.9 thou/uL (4.0-11.0)
[2021-07-08 05:05] LABS: ALBUMIN 2.6 g/dL (3.4-5.0); CALCIUM 8.6 mg/dL (8.5-10.1); CREATININE 3.2 mg/dL (0.6-1.3); MAGNESIUM 2.8 mg/dL (1.8-2.4); PHOSPHORUS* 5.1 mg/dL (2.5-4.9); POTASSIUM 4.8 mmol/L (3.5-5.1); TOTAL BILIRUBIN 0.6 mg/dL (<0.1-1.0); TOTAL PROTEIN 5.3 g/dL (6.4-8.2)
--- NOTE | 2021-07-08 06:58 | NUR ---
PT REMAINS INTUBATED AND SEDATED. PT HAS 3+ PERIOBITAL EDEMA SECONDARY TO PRONING. PT WAS UNPRONED AT 0450. MEDICATIONS ADMINISTERED PRESCRIBED. NO ACUTE CHANGES THIS SHIFT. WILL CONT. TO MONITOR.
[2021-07-08 14:17] LABS: BE -7.7 mmol/L (-2 to +3); PCO2 37.6 mmHg (35.0-45.0); PO2 84.2 mmHg (75.0-100.0)
[2021-07-08 14:21] LABS: pH 7.299 (7.340-7.450)
--- NOTE | 2021-07-08 19:36 | NUR ---
REPORT RECEIVED THIS AM AND CARE ASSUMMED. PT REMAINS SEDATED AND INTUBATED, SEE CHARTING FOR SETTINGS. RODRIGUES INTACT AND PATENT DRAINING YELLOW URINE. NO ACUTE DISTRESS AT THIS TIME. PATIENT HAD A GOOD DAY AND NO ACUTE DISTRESS NOTED. MONITORS INTACT. WILL CONTINUE TO MONITOR
[2021-07-09] VITALS (51 sets, daily range): BP systolic 116–170; BP diastolic 51–61
[2021-07-09 04:49] LABS: HEMATOCRIT 38.7 % (42.0-52.0); HEMOGLOBIN 12.8 gm/dL (14.0-18.0); MCH 30.7 pg (26.0-34.0); MCHC 33.1 g/dL (28.0-37.0); MCV 92.8 fL (80.0-100.0); MPV 9.1 fl. (7.2-11.1); NUCLEATED RBCS 0 /100WBC; PLATELET COUNT* 161 thou/uL (150-400); RBC 4.17 mil/uL (4.50-6.00); RDW-CV 13.3 % (10.5-14.5); WBC 20.4 thou/uL (4.0-11.0)
[2021-07-09 05:07] LABS: ALBUMIN 2.8 g/dL (3.4-5.0); CALCIUM 8.8 mg/dL (8.5-10.1); CREATININE 3.5 mg/dL (0.6-1.3); POTASSIUM 4.4 mmol/L (3.5-5.1); TOTAL BILIRUBIN 0.6 mg/dL (<0.1-1.0); TOTAL PROTEIN 5.3 g/dL (6.4-8.2)
[2021-07-09 05:10] LABS: PHOSPHORUS* 4.7 mg/dL (2.5-4.9)
[2021-07-09 07:10] LABS: ABSOLUTE LYMPHOCYTES 1.2 thou/uL (0.8-5.3); ABSOLUTE NEUTROPHILS 18.2 thou/uL (1.6-8.1)
[2021-07-09 08:28] LABS: BE -3.9 mmol/L (-2 to +3); PO2 82.8 mmHg (75.0-100.0); pH 7.361 (7.340-7.450)
--- NOTE | 2021-07-09 11:02 | CON ---
[address] [address] CONSULTATION Name: RUTHIE STEVENSON Room: [address] IN [facility]#: [id number] Admission: 06/26/21 Attend Phys: Alysia Osorio Discharge: Date of : 49 Report #: [id number] THIS REPORT FOR: cc: Faye Fountain MD, Katrina MD Arakelov, Alexandr V. MD ~ DATE OF CONSULTATION: 07/06/2021 REQUESTING PHYSICIAN: Dr. Pedro Jolley. REASON FOR CONSULTATION: Acute kidney injury. HISTORY OF PRESENT ILLNESS: The patient is a 75-year-old man. He is intubated in intensive care unit. His creatinine on admission was 2.4, but it was as high as 3.0 yesterday and I was consulted. Today's creatinine 2.8. He has good urine output. In fact produced 1600 mL of urine over last 24 hours. His potassium is stable at 4.2. His bicarb is 22. SOCIAL HISTORY: Positive for tobaccoism. MEDICATIONS: Reviewed. FAMILY HISTORY: Positive for hypertension and diabetes in parents. PHYSICAL EXAMINATION: GENERAL: He is in intensive care unit, intubated. VITAL SIGNS: Blood pressure 155/61, heart rate 84, temperature 36.2 Celsius. HEENT: Pupils are round. NECK: Fatty. LUNGS: Decreased air movements. ABDOMEN: Not examined as the patient is in prone position. EXTREMITIES: Lower extremities with 1+ edema. ASSESSMENT: 1. Acute kidney injury due to COVID sepsis. The patient is in respiratory failure, intubated. His creatinine prior to admission, the value of creatinine is not available to me, so I am not sure if he has chronic kidney disease, which he may very well could have due to his history of hypertension and diabetes. The patient is nonoliguric. There is no need for dialysis. 2. Diabetes mellitus type 2. 3. [place] [address] CONSULTATION Name: RUTHIE STEVENSON Room: [address]#: [id number] Admission: 06/26/21 Attend Phys: Alysia Osorio Discharge: Date of : 49 Report #: [id number] PLAN: Continue current care. Follow his urine output, potassium, BUN, creatinine and his pH. Again, no need for dialysis. <ELECTRONICALLY SIGNED> By: Liban Sagastume MD 07/09/21 1102 0948 1012Amark Sagastume MD /nt
[2021-07-10] VITALS (21 sets, daily range): BP systolic 130–197; BP diastolic 53–72
[2021-07-10 04:02] LABS: HEMATOCRIT 40.1 % (42.0-52.0); HEMOGLOBIN 13.2 gm/dL (14.0-18.0); MCH 30.6 pg (26.0-34.0); MCHC 32.8 g/dL (28.0-37.0); MCV 93.4 fL (80.0-100.0); MPV 9.3 fl. (7.2-11.1); RBC 4.3 mil/uL (4.50-6.00); RDW-CV 13.7 % (10.5-14.5)
[2021-07-10 04:18] LABS: MAGNESIUM 3.2 mg/dL (1.8-2.4); PHOSPHORUS* 5.5 mg/dL (2.5-4.9)
[2021-07-10 04:21] LABS: ALBUMIN 2.7 g/dL (3.4-5.0); CALCIUM 8.9 mg/dL (8.5-10.1); CREATININE 3.6 mg/dL (0.6-1.3); TOTAL BILIRUBIN 0.8 mg/dL (<0.1-1.0); TOTAL PROTEIN 5.3 g/dL (6.4-8.2)
[2021-07-10 10:38] LABS: BE -4.3 mmol/L (-2 to +3); PCO2 38.2 mmHg (35.0-45.0); pH 7.353 (7.340-7.450)
--- NOTE | 2021-07-10 14:20 | NUR ---
ICU Rounds: Pt remains vented and sedated at 60%Fio2 10 of peep. Isolation: out of Covid isolation Living Situation: Lives with and daughter Intubated: 07/02/21 Receiving hemodialysis No DPOA paperwork found was recently hospitalized as well. Called house and spoke with . She is doing fine and has recovered. She is anxious for pt to return home. Discussed likely will need SNF vs LTACH but is hoping for returning home with home health. CM to continue to follow for discharge planning.
--- NOTE | 2021-07-10 19:13 | NUR ---
RECIEVED REPORT THSI AM AND CARE ASSUMMED. PT REMAINS INTLUBATED AND ON VENTILATOR. SEE CHARTING FOR SETTING. OGT INTACT AND CLAMPED AT THIS TIME. FOLELY INTACT AND PATENT DRAINING GENO URINE. R [facility] CATH PLACED THIS AFTERNOON. MONITORS INTACT AND NO ACUTE CHANGES DURING SHIFT
[2021-07-11] VITALS (15 sets, daily range): BP systolic 101–152; BP diastolic 46–63
[2021-07-11 05:32] LABS: ABSOLUTE LYMPHOCYTES 0.6 thou/uL (0.8-5.3); ABSOLUTE MONOCYTES 1.8 thou/uL (0.0-1.2); ABSOLUTE NEUTROPHILS 27.7 thou/uL (1.6-8.1); BASOPHILS 0.1 %; HEMATOCRIT 41.6 % (42.0-52.0); HEMOGLOBIN 13.7 gm/dL (14.0-18.0); LYMPHOCYTES 1.9 %; MCH 30.9 pg (26.0-34.0); MCHC 32.8 g/dL (28.0-37.0); MCV 93.9 fL (80.0-100.0); MONOCYTES 6.1 %; MPV 9.4 fl. (7.2-11.1); NUCLEATED RBCS 0 /100WBC; PLATELET COUNT* 134 thou/uL (150-400); POLYS 91.9 %; RBC 4.43 mil/uL (4.50-6.00); RDW-CV 13.7 % (10.5-14.5); WBC 30.2 thou/uL (4.0-11.0)
[2021-07-11 05:59] LABS: APTT 21.9 Seconds (25.0-31.3); INR 1.1; PROTIME 11.6 Seconds (9.20-11.50)
[2021-07-11 06:10] LABS: PHOSPHORUS* 5.3 mg/dL (2.5-4.9)
[2021-07-11 07:02] LABS: ALBUMIN 2.8 g/dL (3.4-5.0); CALCIUM 9.1 mg/dL (8.5-10.1); CREATININE 3.4 mg/dL (0.6-1.3); POTASSIUM 5.8 mmol/L (3.5-5.1); TOTAL BILIRUBIN 0.7 mg/dL (<0.1-1.0); TOTAL PROTEIN 5.4 g/dL (6.4-8.2)
[2021-07-11 07:55] LABS: BE -4.3 mmol/L (-2 to +3); PCO2 37.4 mmHg (35.0-45.0); PO2 77.6 mmHg (75.0-100.0); pH 7.359 (7.340-7.450)
[2021-07-12] VITALS (21 sets, daily range): BP systolic 89–151; BP diastolic 46–71
[2021-07-12 04:37] LABS: ABSOLUTE LYMPHOCYTES 0.3 thou/uL (0.8-5.3); ABSOLUTE NEUTROPHILS 18.9 thou/uL (1.6-8.1); BASOPHILS 0.1 %; HEMATOCRIT 37.2 % (42.0-52.0); HEMOGLOBIN 12.2 gm/dL (14.0-18.0); LYMPHOCYTES 1.5 %; MCH 30.8 pg (26.0-34.0); MCHC 32.8 g/dL (28.0-37.0); MCV 93.8 fL (80.0-100.0); MONOCYTES 4.7 %; MPV 9.3 fl. (7.2-11.1); NUCLEATED RBCS 0 /100WBC; PLATELET COUNT* 84 thou/uL (150-400); POLYS 93.7 %; RBC 3.96 mil/uL (4.50-6.00); RDW-CV 13.8 % (10.5-14.5); WBC 20.2 thou/uL (4.0-11.0)
[2021-07-12 05:27] LABS: ALBUMIN 2.3 g/dL (3.4-5.0); CALCIUM 8.4 mg/dL (8.5-10.1); POTASSIUM 5.8 mmol/L (3.5-5.1); TOTAL BILIRUBIN 0.6 mg/dL (<0.1-1.0); TOTAL PROTEIN 4.6 g/dL (6.4-8.2)
[2021-07-12 05:55] LABS: PHOSPHORUS* 5.4 mg/dL (2.5-4.9)
[2021-07-12 08:19] LABS: BE -2.5 mmol/L (-2 to +3); PCO2 37.4 mmHg (35.0-45.0); PO2 84.2 mmHg (75.0-100.0); pH 7.388 (7.340-7.450)
--- NOTE | 2021-07-12 10:13 | NUR ---
ICU Rounds: Pt remains vented and sedated. Isolation: Out of Covid Isolation Living Situation: Lives with and daughter. DPOA: None Found O2: 70% Fio2 Peep of 10 Intubated: 07/02/21 Pt has started hemodialysis for fluid overload. Weaning trials to continue through the weekend in the hopes of either weaning pt off the vent or to have trache and Peg tube placed next week. If able to wean off - likely will need SNF. If a trache and Peg Tube is placed next week - will need LTACH placement. CM to continue to follow for discharge planning.
[2021-07-13] VITALS (18 sets, daily range): BP systolic 109–151; BP diastolic 52–71
[2021-07-13 04:55] LABS: ABSOLUTE LYMPHOCYTES 0.3 thou/uL (0.8-5.3); ABSOLUTE NEUTROPHILS 18.8 thou/uL (1.6-8.1); BASOPHILS 0.1 %; HEMATOCRIT 34.5 % (42.0-52.0); HEMOGLOBIN 11.5 gm/dL (14.0-18.0); LYMPHOCYTES 1.5 %; MCH 31.3 pg (26.0-34.0); MCHC 33.3 g/dL (28.0-37.0); MCV 93.8 fL (80.0-100.0); MONOCYTES 4.9 %; MPV 9.4 fl. (7.2-11.1); NUCLEATED RBCS 0 /100WBC; PLATELET COUNT* 61 thou/uL (150-400); POLYS 93.5 %; RBC 3.68 mil/uL (4.50-6.00); RDW-CV 13.9 % (10.5-14.5); WBC 20.1 thou/uL (4.0-11.0)
[2021-07-13 04:58] LABS: BE -1.6 mmol/L (-2 to +3); PCO2 35.5 mmHg (35.0-45.0); PO2 95.2 mmHg (75.0-100.0); pH 7.417 (7.340-7.450)
[2021-07-13 05:44] LABS: INR 1.1; PROTIME 11.1 Seconds (9.20-11.50)
[2021-07-13 05:55] LABS: ALBUMIN 2.1 g/dL (3.4-5.0); CALCIUM 7.7 mg/dL (8.5-10.1); CREATININE 2.4 mg/dL (0.6-1.3); POTASSIUM 5.3 mmol/L (3.5-5.1); TOTAL BILIRUBIN 0.7 mg/dL (<0.1-1.0); TOTAL PROTEIN 4.5 g/dL (6.4-8.2)
--- NOTE | 2021-07-13 06:47 | NUR ---
PT REMAINS INTUBATED AND SEDATED. ASSESSMENTS COMPLETE CHARTED. NO ACUTE CHANGES THIS SHIFT. WILL CONT. TO MONITOR.
[2021-07-14] VITALS (22 sets, daily range): BP systolic 80–184; BP diastolic 48–77
[2021-07-14 04:41] LABS: HEMATOCRIT 36.3 % (42.0-52.0); MCHC 33.2 g/dL (28.0-37.0); MCV 93.5 fL (80.0-100.0); MPV 10.1 fl. (7.2-11.1); NUCLEATED RBCS 0 /100WBC; PLATELET COUNT* 62 thou/uL (150-400); RBC 3.88 mil/uL (4.50-6.00); RDW-CV 13.9 % (10.5-14.5); WBC 22.5 thou/uL (4.0-11.0)
[2021-07-14 04:55] LABS: ABSOLUTE NEUTROPHILS 21.1 thou/uL (1.6-8.1); POLYS 93.7 %
[2021-07-14 04:56] LABS: ABSOLUTE LYMPHOCYTES 0.3 thou/uL (0.8-5.3); ABSOLUTE MONOCYTES 1.1 thou/uL (0.0-1.2); LYMPHOCYTES 1.5 %; MONOCYTES 4.8 %
[2021-07-14 05:06] LABS: CALCIUM 8.5 mg/dL (8.5-10.1); CREATININE 2.6 mg/dL (0.6-1.3); POTASSIUM 5.9 mmol/L (3.5-5.1)
--- NOTE | 2021-07-14 13:53 | NUR ---
ICU Rounds: Remains Intubated and Sedated Isolation: Out of Covid Isolation Living Situation: Live with and daughter Intubated: 06/22/21 Hemodialyis started: 07/11/21 Oxygen Needs: 70%Fio2 10 of Peep DPOA: None D/C Plan - LTACH vs SNF CM to continue to follow - may need trache and peg tube placement soon.
[2021-07-14 16:06] LABS: HEPATITIS B SURFACE AG Negative (Negative)
[2021-07-14 17:30] LABS: BE -0.9 mmol/L (-2 to +3); PCO2 VENOUS 38.1 mmHg (41.0-51.0); PO2 VENOUS 61.6 mmHg (35.0-45.0)
--- NOTE | 2021-07-14 18:01 | NUR ---
REPORT RECIEVED THIS AM AND CARE ASSUMMED. PT IN NO ACUTE DISTRESS AT THAT TIME. DIALYSIS HERE TO PERFORM DIALYSIS. PT HAD A COUPLE EPISODES OF DECREASED BP DURING DIALYSIS BUT WAS ABLE TO ADJUST MEDS AND BP INCREASED. NO ACUTE DISTRESS REPORTED. DIALYSIS REMOVED 943 AND DRESSING CHANGED PT HAS HAD UNEVENTFUL DAY. MOITORS INTACT AND NO ACUTE CHANGES NOTED. WILL CONTINUE TO MONITOR
[2021-07-15] VITALS (14 sets, daily range): BP systolic 56–195; BP diastolic 26–80
--- NOTE | 2021-07-15 02:53 | NUR ---
Pt is not stable enough to prone at this time, he is tachycardic to the 130's, repsiratory rate is at 32, there is thick bloody/yellow oral/ETT drainage. Current O2 sats are 69%, probes have been changed to diferent sites, the HOB has been raised. Will cntinue to monitor
[2021-07-15 04:04] LABS: ABSOLUTE LYMPHOCYTES 0.6 thou/uL (0.8-5.3); ABSOLUTE MONOCYTES 0.5 thou/uL (0.0-1.2); ABSOLUTE NEUTROPHILS 19.9 thou/uL (1.6-8.1); BASOPHILS 0.1 %; LYMPHOCYTES 2.8 %; MCH 30.9 pg (26.0-34.0); MCHC 32.5 g/dL (28.0-37.0); MCV 95.1 fL (80.0-100.0); MONOCYTES 2.4 %; MPV 9.3 fl. (7.2-11.1); NUCLEATED RBCS 0 /100WBC; PLATELET COUNT* 73 thou/uL (150-400); POLYS 94.7 %; RBC 4.21 mil/uL (4.50-6.00); RDW-CV 13.5 % (10.5-14.5)
[2021-07-15 04:16] LABS: BE -8.1 mmol/L (-2 to +3); PCO2 44.2 mmHg (35.0-45.0)
[2021-07-15 04:19] LABS: PO2 37.3 mmHg (75.0-100.0)
[2021-07-15 04:29] LABS: ALBUMIN 2.3 g/dL (3.4-5.0); CALCIUM 7.9 mg/dL (8.5-10.1); CREATININE 2.4 mg/dL (0.6-1.3); POTASSIUM 5.8 mmol/L (3.5-5.1); TOTAL BILIRUBIN 0.8 mg/dL (<0.1-1.0); TOTAL PROTEIN 4.8 g/dL (6.4-8.2)
[2021-07-15 06:45] LABS: APTT 23.6 Seconds (25.0-31.3); PROTIME 10.7 Seconds (9.20-11.50)
== END 2021-07-15 06:20 | DRG 870 ==
LOC: M.ERS 19:43 → M.TBA-ER 21:49 → M.ICU 21:49 → M.ORTHSURG 21:49 → M.ICU 06-30 20:00
PROVIDERS: Internal Medicine; Internal Medicine Critical Care Medicine; Internal Medicine Nephrology; Nurse Practitioner Family; Pediatrics; Personal Emergency Response Attendant; ADMIT Internal Medicine; ATTEND Internal Medicine
DX: A41.89 Other specified sepsis (principal); U07.1 COVID-19; J96.01 Acute respiratory failure with hypoxia; N17.0 Acute kidney failure with tubular necrosis; J15.9 Unspecified bacterial pneumonia; J12.82 Pneumonia due to coronavirus disease 2019; Z68.42 Body mass index [BMI] 45.0-49.9, adult; M62.82 Rhabdomyolysis; E46 Unspecified protein-calorie malnutrition; I47.1 Supraventricular tachycardia; I10 Essential (primary) hypertension; E11.9 Type 2 diabetes mellitus without complications; Z87.891 Personal history of nicotine dependence; Z88.8 Allergy status to other drugs, medicaments and biological substances; E66.01 Morbid (severe) obesity due to excess calories; N40.0 Benign prostatic hyperplasia without lower urinary tract symptoms; E87.5 Hyperkalemia; E83.41 Hypermagnesemia; D69.6 Thrombocytopenia, unspecified